=== PATIENT | female | born 1945 | race Caucasian/White ===

== ENCOUNTER → 2017-03-17 | Outpatient (CLI) | payer MEDICARE, BC ==
[~2017-03-17] MED LIST: AUGMENTIN PO; PERCOCET5/325 PO
--- NOTE | ~2017-03-17 | BD1 ---
[facility] A Service of [facility] & [facility] RADIOLOGY TEXT RESULTS PATIENT: YARITZA PANIAGUA LOCATION: [facility] : 47 UNIT #: [id number] AGE: [address]: TERE CAMPBELL MD SEX: F ORDER DR: [id number] [facility] [address] [place], [place] [address] [id number] O MR#: [id number] Acc #: [id number] NAME: YARITZA PANIAGUA : 1945 SEX: F STUDY DATE/TIME: 03/17/2017 9:20 UNIT: [facility] ROOM: STUDY DESCRIPTION: BD Dexa Bone Dens 1+ Site Attending Physician: Carlos Campbell M.D. Referring Physician: Carlos Campbell M.D. Ordering Physician: Carlos Campbell M.D. Primary Care Physician: Carlos Campbell M.D. MEDICAL IMAGING REPORT This report is preliminary unless electronic signature is present EXAM Bone density scan HISTORY Screening for osteoporosis, arthritis, postmenopausal, nonsmoker. FINDINGS Bone density scanning performed upper 4 lumbar vertebral segments and proximal left femur. Bone mineral density L1-L4 1.025 g/cm2 for T-score 0.2 standard deviation below mean for reference population normal young individuals and Z-score 1.9 standard deviations above the mean for age-matched population. PROXIMAL LEFT FEMUR: Total bone mineral density 0.802 g/cm2 for T-score 1.1 standard deviation below mean for reference population normal young individuals and Z-score 0.4 standard deviations above the mean for age-matched population. Left femoral neck bone mineral density 0.596 g/cm2 for T-score 2.3 standard deviation below mean for reference population normal young individuals and Z-score 0.4 standard deviations below mean for age-matched population. IMPRESSION Osteopenia in the left femoral neck. Patient felt to be at increased risk for fracture. Treatment options may be considered. Continued surveillance is recommended. Dictated by... Chirag Pizano M.D. THIS IS AN ELECTRONICALLY VERIFIED REPORT [facility] A Service of [facility] & [facility] RADIOLOGY TEXT RESULTS PATIENT: YARITZA PANIAGUA LOCATION: [facility] : [birth year] UNIT #: [id number] AGE: [address]: TERE CAMPBELL MD SEX: F ORDER DR: Chirag Pizano M.D. at 03/19/2017 5:58 PM KEYLA/marcela TD: 03/18/2017 09:10 JOB #: [id number] MEDICAL IMAGING REPORT Page 1 of 1 COPY
--- NOTE | ~2017-03-17 | MY11 ---
[facility] A Service of [facility] & [facility] RADIOLOGY TEXT RESULTS PATIENT: YARITZA PANIAGUA LOCATION: [facility] : 47 UNIT #: [id number] AGE: [address]: TERE CAMPBELL MD SEX: F ORDER DR: [id number] [facility] [address] [place], [place] [address] [id number] O MR#: [id number] Acc #: [id number] NAME: YARITZA PANIAGUA : 1945 SEX: F STUDY DATE/TIME: 03/17/2017 9:07 UNIT: [facility] ROOM: STUDY DESCRIPTION: MY Mammogram Screening Dig Carlos Attending Physician: Carlos Campbell M.D. Referring Physician: Carlos Campbell M.D. Ordering Physician: Carlos Campbell M.D. Primary Care Physician: Carlos Campbell M.D. MEDICAL IMAGING REPORT This report is preliminary unless electronic signature is present EXAM Digital screening mammograms 03/17/2017, [facility]. HISTORY 71-year-old woman; no risk elevation. Annual screening. COMPARISON Outside mammograms now available, date 07/01/2012. FINDINGS Digital imaging of each breast was completed, utilizing screening protocol. Review includes FDA-approved CAD device. Breast parenchyma is heterogeneous with scattered small nodular parenchymal pattern in each breast. Several coarse calcifications are stable on the left. There is no interval occurring breast mass. There are no suspicious microcalcifications and no architectural deformity. IMPRESSION Benign mammogram. Annual screening recommended. Patients over the age of 40 are entered into a reminder system with target due date for the next mammogram. A result letter will also be sent to the patient. BIRADS: 2 Benign finding. Dictated by... Jorge Leblanc M.D. THIS IS AN ELECTRONICALLY VERIFIED REPORT Jorge Leblanc M.D. at 03/18/2017 3:27 PM [facility] A Service of [facility] & [facility] RADIOLOGY TEXT RESULTS PATIENT: YARITZA PANIAGUA LOCATION: [facility] : 47 UNIT #: [id number] AGE: [address]: TERE CAMPBELL MD SEX: F ORDER DR: Ulysses TD: 03/18/2017 14:51 JOB #: [id number] MEDICAL IMAGING REPORT Page 1 of 1 COPY
== END | disposition home or self-care (01) ==
LOC: CWCC 08:52
DX: Z13.820 Encounter for screening for osteoporosis (principal); Z12.31 Encounter for screening mammogram for malignant neoplasm of breast; M85.88 Other specified disorders of bone density and structure, other site
CPT/HCPCS: 77080; G0202